=== PATIENT | female | born 1960 | race Caucasian/White ===

== ENCOUNTER 2017-08-15 17:42 | Emergency (ER) | payer OTHER ==
[~2017-08-15] VITALS: Ht 165.1 cm; Wt 74.8 kg
[~2017-08-15 17:42] MED LIST: ALPRAZOLAM0.5 M4 PO; CYCLOBENZAPRINE10 M1 PO; CYCLOBENZAPRINE10 MG PO; DOLOPHINE10 MG PO; DUEXIS 26.6 MG-1 TAB PO; DUEXIS 800-26.1 EACH PO; DULOXETINE HCL30 MG PO; ESCITALOPRAM20 MG PO; GABAPENTIN300 M2 PO; HYDROXYZINE50 MG PO; HYSINGLA ER40 MG PO; LIDODERM1 EACH TOP; MEDROL4 M2 PO; MULTI-DAY VITA1 EACH PO; MULTIVITAMIN1 TAB PO; OXYCODONE HCL30 M1 PO; OXYCODONE HCL30 MG PO; PREDNISONE 10MG10 M1 PO; PREMARIN 1.251.25 MG PO; PREMARIN0.625 M1 PO; SIMVASTATIN40 MG PO; TOPAMAX 100MG100 MG PO; XANAX0.5 MG PO; ZOFRAN ODT4 M1 PO
--- NOTE | 2017-08-15 18:35 | ED INFLUENZA/URI COMPLAINT ---
History of Present Illness General Chief Complaint: Upper Respiratory Sx/Fever Stated Complaint: NO RELIEF OF UPPER RESP INFECTION SYMPTOMS Source: patient, old records Exam Limitations: no limitations Vital Signs & Intake/Output Vital Signs & Intake/Output Vital Signs Date Time Temp Pulse Resp B/P B/P Pulse O2 O2 Flow FiO2 Mean Ox Delivery Rate 08/15 1751 97.4 102 97 157/88 98 Room Air Allergies Coded Allergies: NSAIDS (Non-Steroidal Anti-Inflamma (PEPTIC ULCERS 11/22/15) Triage Note: PT STATES THAT SHE WAS ON ABT AND STEROIDS FOR PNA AND THAT SHE IS NOT FEELING BETTER, COUGH GREEN THICK SPUTUM, INTERMITTANT FEVERS Triage Nurses Notes Reviewed? yes Onset: 2 months Duration: week(s):, constant, continues in ED, waxing and waning Timing: recent history Severity: moderate, severe Prior Episodes/Possible Cause: illness exposure No Modifying Factors: none Associated Symptoms: cough, nasal congestion, shortness of breath, wheezing LMP (ages 10-50): post menopausal : No Patient currently breastfeeds: No HPI: 2 months prior to admission patient complains of episodes of nonproductive cough shortness of breath wheezing. She's been prescribed the smacks amoxicillin prednisone and Anuro inhaler. 2 days prior to admission she complains of recurrent shortness of breath with productive cough of green sputum fever wheezing and shortness of breath. She denies chest pain headache dysuria rash bleeding congestion. (Mitch MARIN,Meño) Reconcile Medications Albuterol Sulfate (Proair Hfa) 90 MCG HFA.AER.AD 2 PUF INH Q4-6 PRN PRN wheezing, shortness of breath Alprazolam 0.5 MG TABLET 1 TAB PO QPM ANXIETY (Reported) Ciprofloxacin HCl (Cipro) 500 MG TABLET 1 TAB PO BID bronchitis Cyclobenzaprine HCl 10 MG TABLET 1 TAB PO BID MUSCLE SPASMS (Reported) Duloxetine HCl 30 MG CAPSULE.DR 3 CAP PO DAILY MENTAL HEALTH (Reported) Estrogenic Subst Conj (Premarin) 0.625 MG TABLET 1 TAB PO DAILY HRT (Reported ) Gabapentin 300 MG CAPSULE 2 CAP PO DAILY NERVE PAIN (Reported) Hydrocodone Bitartrate (Hysingla ER) 40 MG TAB.ER.24H 1 TAB PO DAILY PAIN ( Reported) Ibuprofen/Famotidine (Duexis 800-26.6 MG Tablet) 1 EACH TABLET 1 TAB PO PRN ARTHRITIS (Reported) Levofloxacin (Levaquin) 500 MG TABLET 1 TAB PO DAILY bronchitis Lidocaine (Lidoderm) 1 EACH ADH..PATCH 1 PAT TOP DAILY PAIN (Reported) may wear up to 12 hours Multivitamin (Multi-Day Vitamins) 1 EACH TABLET 1 TAB PO DAILY SUPPLEMENT ( Reported) Oxycodone HCl 30 MG TABLET 1 TAB PO TID PRN PAIN (Reported) Prednisone 20 MG TABLET 1 TAB PO BID bronchospasm (Tanner MARIN,[place]) Past History Travel History Traveled to [place] past 21 day No Medical History Any Pertinent Medical History? see below for history Neurological: NONE EENT: NONE Cardiovascular: hyperlipidemia Respiratory: COPD Gastrointestinal: peptic ulcer disease Hepatic: NONE Renal: NONE Musculoskeletal: chronic back pain, fibromyalgia, psoariatic arthritis Psychiatric: bipolar disease, depression Endocrine: NONE Blood Disorders: NONE Cancer(s): NONE MARKETING SERVICES SPECIALIST/Reproductive: NONE Surgical History Surgical History: non-contributory Psychosocial History What is your primary language Guyanese Tobacco Use: Current Daily Use Daily Tobacco Use Amount/Type: => 5 Cigarettes daily ETOH Use: denies use Illicit Drug Use: denies illicit drug use Family History Hx Contributory? No (Meño Meyer MD) Review of Systems Review of Systems Constitutional: Reports: see HPI, fever, malaise. EENTM: Reports: no symptoms. Respiratory: Reports: see HPI, cough, short of breath, sputum production, wheezing. Cardiovascular: Reports: no symptoms. GI: Reports: no symptoms. Genitourinary: Reports: no symptoms. Musculoskeletal: Reports: no symptoms. Skin: Reports: no symptoms. Neurological/Psychological: Reports: no symptoms. Hematologic/Endocrine: Reports: no symptoms. Immunologic/Allergic: Reports: no symptoms. All Other Systems: Reviewed and Negative (Meño Meyer MD) Physical Exam Physical Exam General Appearance: well developed/nourished, alert, awake, anxious, mild distress Head: atraumatic, normal appearance Eyes: Bilateral: normal appearance, PERRL, EOMI. Ears, Nose, Throat: moist mucous membrane, hearing grossly normal, nasal congestion (postnasal drip) Neck: normal inspection, supple, full range of motion, trachea midline Respiratory: chest non-tender, quiet respiration, decreased breath sounds, wheezing Cardiovascular: regular rate/rhythm, normal peripheral pulses, norml femoral pulses equa Peripheral Pulses: 4+ carotid (R), 4+ carotid (L) Gastrointestinal: normal bowel sounds, soft, non-tender, no organomegaly Back: normal inspection, normal range of motion Extremities: normal inspection, normal capillary refill, normal range of motion, no edema, no ligament instability Neurologic/Psych: no motor/sensory deficits, awake, alert, oriented x 3, normal gait, normal mood/affect, 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 Skin: intact, normal color, warm/dry Lymphatic: no anterior cervical clyde Core Measures Sepsis Present: No Sepsis Focused Exam Completed? No (Meño Meyer MD) Progress Differential Diagnosis: influenza, pneumonia, sinusitis Plan of Care: Orders Procedure Date/time Status XRY-CHEST XRAY, TWO VIEWS 08/16 1831 Active Initial ED EKG: none Hand-Off Endorsed To: Foreign Hart MD Endorsed Time: 1899 Pending: Xray (Meño Meyer MD) Departure Departure Disposition: HOME OR SELF CARE Condition: Stable Clinical Impression Primary Impression: COPD with acute bronchitis Referrals: You Montiel MD (PCP/Family) Departure Forms: Customer Survey General Discharge Information (Meño Meyer MD) Departure Prescriptions: Current Visit Scripts Levofloxacin (Levaquin) 1 TAB PO DAILY #10 TAB Albuterol Sulfate (Proair Hfa) 2 PUF INH Q4-6 PRN PRN wheezing, shortness of breath #1 INHAL Ref 3 Prednisone 1 TAB PO BID #10 TAB Ciprofloxacin HCl (Cipro) 1 TAB PO BID #14 TAB Comments 08/15/17, 20:23... pt well appearing in ED, no consolidation on CXR... pt safe for discharge with abx/steroids... close follow up advised. (Tanner MARIN,[place])
[2017-08-15] MEDS ORDERED: PROAIR HFA8.5 GM INH (18:57)
[2017-08-15] MEDS ORDERED: CIPRO500 M1 PO (18:57)
[2017-08-15] MEDS ORDERED: PREDNISONE20 M1 PO (18:57)
--- NOTE | 2017-08-15 19:45 | RADIOLOGY REPORT ---
EXAMINATION: XR CHEST CLINICAL INFORMATION: Productive cough, wheezing COMPARISON: 07/03/2017 chest x-ray and 07/22/[address] scan TECHNIQUE: 2 views of the chest were obtained. FINDINGS: The cardiomediastinal silhouette is normal. No pulmonary venous congestion. Mildly hyperinflated emphysematous lungs again noted. No focal pulmonary consolidation, pleural effusion or pneumothorax. Mild anterior endplate osteophytosis of multiple thoracic vertebral bodies noted. Mild bilateral apical pleural thickening is seen. IMPRESSION: Mildly hyperexpanded lungs without focal pulmonary consolidation.
[2017-08-15] MEDS ORDERED: LEVAQUIN500 M1 PO (20:22)
[2017-08-15 20:29] VITALS: BP 145/68
== END 2017-08-15 20:31 ==
LOC: ERH 17:42
DX: J44.9 Chronic obstructive pulmonary disease, unspecified (principal); F17.210 Nicotine dependence, cigarettes, uncomplicated; R06.02 Shortness of breath; R05 Cough; R50.9 Fever, unspecified; R06.2 Wheezing
CPT/HCPCS: 71046